=== PATIENT | female | born 1985 | race Caucasian/White ===

== ENCOUNTER 2024-10-23 07:12 | Outpatient (OUT) | payer OTHER, SELFPAY ==
[2024-10-23 07:27] LABS: Basophils Absolute Auto 0.1 10^3/uL (0.0-0.1); Eosinophils Absolute Auto 0.2 10^3/uL (0.0-0.7); Eosinophils Percent Auto 3.2 % (0.9-7.0); Immature Granulocytes Abs Auto 0.02 10^3/uL (0.00-0.03); Immature Granulocytes Pct Auto 0.3 % (0.0-0.5); Lymphocytes Absolute Auto 1.6 10^3/uL (1.2-3.8); Lymphocytes Percent Auto 26.6 % (20.5-60.0); Mean Corpuscular HGB Conc 28.7 g/dL (29.9-35.2); Mean Corpuscular Hemoglobin 19.2 pg (26.7-34.0); Mean Platelet Volume 9.8 fL (9.5-13.5); Monocytes Absolute Auto 0.5 10^3/uL (0.3-0.8); Monocytes Percent Auto 8.3 % (1.7-12.0); Neutrophils Absolute Auto 3.6 10^3/uL (1.4-6.5); Neutrophils Percent Auto 60.6 % (43.0-75.0); Platelet Count 386 10^3/uL (150-450); Red Blood Count 4.63 10^6/uL (4.20-5.40); Red Cell Distribution Width 20.1 % (11.0-15.0)
[2024-10-23 08:12] LABS: Estimated Average Glucose 117 mg/dL; Glycohemoglobin A1C 5.7 % (4.5-6.2)
[2024-10-23 08:14] LABS: Alanine Aminotransferase 17 U/L (14-59); Albumin Level 3.5 g/dL (3.4-5.0); Alkaline Phosphatase 71 U/L (46-116); Anion Gap 9.8; Aspartate Amino Transferase 11 U/L (15-37); BUN Creatinine Ratio 10.8; Bilirubin Total 0.5 mg/dL (0.2-1.0); Calcium 8.5 mg/dL (8.5-10.1); Carbon Dioxide 26.8 mmol/L (21.0-32.0); Chloride 103 mmol/L (98-107); Chol HDL Ratio 3.3; Cholesterol 159 mg/dL (<=200); Estimated GFR (African America >60 (>=60 mL/min/1.73m^2); Estimated GFR (Non-African Ame >60 (>=60 mL/min/1.73m^2); Globulin 3.5 g/dL; Glucose 86 mg/dL (74-106); HDL Cholesterol 48 mg/dL (40-60); Potassium 3.6 mmol/L (3.5-5.1); Sodium 136 mmol/L (136-145); Thyroid Stimulating Hormone 2.695 uIU/mL (0.358-3.740); Triglycerides 70 mg/dL (<=150)
[2024-10-23 08:17] LABS: Hemoglobin 8.9 g/dL (12.0-16.0)
== END 2024-10-23 07:13 | disposition home or self-care (01) ==
LOC: LAB 07:17
PROVIDERS: Visit Provider Physician Assistant
DX: Z00.00 Encounter for general adult medical examination without abnormal findings (principal)
CPT/HCPCS: 36415; 80053; 80061; 83036; 84443; 85025